=== PATIENT | male | born 1970 | race African-American/Black ===

== ENCOUNTER 2018-11-16 12:17 | Inpatient (IN) | payer BC ==
[2018-11-16 14:09] VITALS: BMI 23.7
--- NOTE | 2018-11-16 16:22 | HP ---
COWS - Scale Resting Pulse: 0= [place] 80 or Below Sweatin= No chills or Flushing Restless Observation: 0= Sits Still Pupil Size: 0= Normal to Room Light Bone or Joint Aches: 1= Mild Discomfort Runny Nose/ Eye Tearin= None GI Upset > 30mins: 0= None Tremor Observation: 0= None Yawning Observation: 1= 1-2x During Session Anxiety or Irritability: 2=Irritable/Anxious Goose Flesh Skin: 3=Piloerection COWS Score: 7 CIWA Score - Admission Criteria OASAS Guidelines: Admission for Medically Managed Detox: Requires at least one of the followin. CIWA greater than 12 2. Seizures within the past 24 hours 3. Delirium tremens within the past 24 hours 4. Hallucinations within the past 24 hours 5. Acute intervention needed for co occurring medical disorder 6. Acute intervention needed for co occurring psychiatric disorder 7. Severe withdrawal that cannot be handled at a lower level of care (continued vomiting, continued diarrhea, abnormal vital signs) requiring intravenous medication and/or fluids 8. Admission ROS [facility] - [facility] Chief Complaint: 48 y/o M with HTN who comes in to detox from heroin, marijuana. Allergies/Adverse Reactions: Allergies Allergy/AdvReac Type Severity Reaction Status Date / Time No Known Allergies Allergy Verified 11/16/18 13:55 History of Present Illness: 48 y/o M with PMH HTN who presents to detox from heroin. Per pt, his last use of heroin was today. Used 3 bags via inhalation, uses this amount every day. Has never IVDA. Was in a methadone program at [facility] [id number]; he was on a dose of 100 mg qd. States that he d/c it since he went to a program subsequently. Had also tried suboxone previously and liked it. States it was a good experience , however he "messed up an relapsed." Had OD 1x previously. Longest sobriety 2 yrs [id number] - states that he was going to NA meetings. Also uses marijuana daily - 1 bag, smoking every day. Uses this amount daily. Also xanax 3 weeks ago ; 1 stick. 2010 - [facility] 2016: [facility] - 6 months rehab 2016- [facility] detox PMH: as above PsxH: R lung cyst - lobectomy meds: hydrochlorothiazide allergies: NKDA FH: dad - HTN SH: lives in an apt with a family member. Works as a [employer]. 1 ppd x since age 15. denies alcohol use. or other drug use. Exam Limitations: No Limitations - Ebola screening Have you traveled outside of the country in the last 21 days: No Have you had contact with anyone from an Ebola affected area: No Have you been sick,other than usual withdrawal symptoms: No Do you have a fever: No - Review of Systems Constitutional: No Symptoms Reported EENT: reports: No Symptoms Reported Respiratory: reports: No Symptoms reported Cardiac: reports: No Symptoms Reported GI: reports: No Symptoms Reported : reports: No Symptoms Reported Musculoskeletal: reports: No Symptoms Reported Integumentary: reports: No Symptoms Reported Neuro: reports: Headache Endocrine: reports: No Symptoms Reported Hematology: reports: No Symptoms Reported Psychiatric: reports: No Sypmtoms Reported, Orientated x3 Patient History - Patient Medical History Hx Anemia: No Hx Asthma: No Hx Chronic Obstructive Pulmonary Disease (COPD): No Hx Cancer: No Hx Cardiac Disorders: No Hx Congestive Heart Failure: No Hx Hypertension: Yes Hx Hypercholesterolemia: No Hx Pacemaker: No HX Cerebrovascular Accident: No Hx Seizures: No Hx Dementia: No Hx Diabetes: No Hx Gastrointestinal Disorders: No Hx Liver Disease: No Hx Genitourinary Disorders: No Hx Sexually Transmitted Disorders: No Hx Renal Disease (ESRD): No Hx Thyroid Disease: No Hx Human Immunodeficiency Virus (HIV): No Hx Hepatitis C: No Hx Depression: No Hx Suicide Attempt: No Hx Bipolar Disorder: No Hx Schizophrenia: No - Patient Surgical History Past Surgical History: Yes Other Surgical History: R lobectomy - PPD History Documented Results: Negative w/o proof PPD to be Administered?: Yes - Reproductive History Patient is a Female of Child Bearing Age (11 -55 yrs old): No - Smoking Cessation Smoking history: Current every day smoker Have you smoked in the past 12 months: Yes Aproximately how many cigarettes per day: 20 Hx Chewing Tobacco Use: No Initiated information on smoking cessation: Yes 'Breaking Loose' booklet given: 11/16/18 - Substances abused Heroin Substance route: Inhalation Frequency: Daily Amount used: 4 bags Age of first use: 20 Date of last use: 11/16/18 Marijuana/Hashish Substance route: Smoking Frequency: Daily Amount used: 2 blunts Age of first use: 12 Date of last use: 11/16/18 Alprazolam (Xanax) Other (specify): xanax Substance route: Oral Frequency: 1-2 times per week Amount used: 1 stick Age of first use: 48 Date of last use: 11/02/18 Family Disease History - Family Disease History Family Disease History: Heart Disease: Father (HTN) Admission Physical Exam [facility] - Vital Signs Vital Signs: Vital Signs - 24 hr 11/16/18 13:53 Temperature 98.0 F Pulse Rate 59 L Respiratory 16 Rate Blood Pressure 133/81 - Physical General Appearance: Yes: Within Normal Limits HEENTM: Yes: Hearing grossly Normal Respiratory: Yes: Wheezing Neck: Yes: Supple Breast: Yes: Breast Exam Deferred Cardiology: Yes: S1, S2, Tachycardia Abdominal: Yes: Soft Genitourinary: Yes: Within Normal Limits Back: Yes: Within Normal Limits Extremities: Yes: Non-Tender 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 NML intact Integumentary: Yes: Dry, Warm - Diagnostic (1) Opiate withdrawal Current Visit: Yes Status: Acute (2) Hypertension Current Visit: Yes Status: Chronic (3) Marijuana dependence Current Visit: Yes Status: Chronic (4) Nicotine dependence Current Visit: Yes Status: Chronic Qualifiers: Nicotine product type: cigarettes Cleared for Admission [facility] - Detox or Rehab [facility] Level of Care: Medically Managed Detox Regimen/Protocol: Methadone Breathalyzer - Breathalyzer Breathalyzer: 0 Urine Drug Screen - Test Device Lot number: [id number] Expiration date: 08/30/20 - Control Is test valid?: Yes - Results Drug screen NEGATIVE: No Urine drug screen results: THC-Marijuana, FEN-Fentanyl, MOP-Opiates, BZO- Benzodiazepines Inpatient Rehab Admission - Rehab Decision to Admit Inpatient rehab admission?: No
[2018-11-16] MEDS ORDERED: cloNIDine HCL 0.1 MG TABLET PO PRN (16:55)
[2018-11-16] MEDS ORDERED: BISMUTH SUBSALICYLATE 524 MG/30 ML UD PO PRN (17:04)
[2018-11-16] MEDS ORDERED: hydrOXYzine HCL 25 MG TABLET (FP) PO PRN (17:04)
[2018-11-16] MEDS ORDERED: ACETAMINOPHEN 325 MG TABLET (FP) PO PRN (17:04)
[2018-11-16] MEDS ORDERED: IBUPROFEN 400 MG TABLET (FP) PO PRN (17:04)
[2018-11-16] MEDS ORDERED: MAGNESIUM HYDROX 2400MG/30ML ORAL SUSPENSION 30 ML CUP PO PRN (17:04)
[2018-11-16] MEDS ORDERED: MAG HYDROX/AL HYDROX/SIMETH 30 ML UNIT-DOSE CUP PO PRN (17:04)
[2018-11-16] MEDS ORDERED: MENTHOL/PHENOL 1 EACH UD MM PRN (17:04)
[2018-11-16] MEDS ORDERED: METHADONE HCL 10 MG TABLET (FOR DETOX USE ONLY) PO ONE (18:00)
[2018-11-16] MEDS: NICOTINE 7 MG/24 HOURS TOPICAL PATCH TD SCH (18:38)
[2018-11-16 22:01] LABS: URINE APPEARANCE CLEAR; URINE BILIRUBIN NEGATIVE (NEGATIVE); URINE COLOR YELLOW; URINE GLUCOSE (UA) NEGATIVE (NEGATIVE); URINE KETONE NEGATIVE (NEGATIVE); URINE LEUK ESTERASE NEGATIVE (NEGATIVE); URINE NITRITE NEGATIVE (NEGATIVE); URINE PROTEIN NEGATIVE (NEGATIVE)
[2018-11-16] MEDS: THIAMINE HCL 100 MG TABLET (FP) PO SCH (22:26)
[2018-11-16] MEDS: MELATONIN 5 MG TABLETS PO PRN (22:27)
[2018-11-17] MEDS ORDERED: METHADONE HCL 10 MG TABLET (FOR DETOX USE ONLY) ONE (09:29)
[2018-11-17] MEDS ORDERED: METHADONE HCL 5 MG TABLET (FOR DETOX USE ONLY) ONE (09:29)
[2018-11-17] MEDS ORDERED: METHADONE (DETOX) 20 MG, METHADONE (DETOX) 5 MG PO ONE (10:00)
[2018-11-17] MEDS: NICOTINE 7 MG/24 HOURS TOPICAL PATCH TD SCH (10:17)
[2018-11-17] MEDS: PRENATAL VITAMINS W/ FOLIC ACID TABLET (FP) PO SCH (10:17)
[2018-11-17] MEDS: TRIAMTERENE AND HCTZ - 37.5 MG/25 MG CAPSULE PO SCH (10:17)
[2018-11-17 10:22] LABS: HEMATOCRIT 42.5 % (35.4-49); HEMOGLOBIN 14.1 GM/dL (11.7-16.9); MCH 28.6 pg (25.7-33.7); MCHC 33.1 g/dl (32.0-35.9); MEAN CELL VOLUME 86.5 fl (80-96); MEAN PLT VOLUME 10.2 fl (7.5-11.1); RBC 4.91 M/mm3 (4.00-5.60); RDW 14.4 % (11.9-15.9); WHITE BLOOD COUNT 6.2 K/mm3 (4.0-10.0)
[2018-11-17 10:32] LABS: ALBUMIN 3.5 g/dl (3.4-5.0); BILIRUBIN,TOTAL 0.3 mg/dL (0.2-1); BLOOD UREA NITROGEN 17.6 mg/dL (7-18); CREATININE 1.1 mg/dL (0.55-1.3); POTASSIUM 4.3 mmol/L (3.5-5.1); TOT PROT 7.1 g/dl (6.4-8.2)
[2018-11-17 10:37] LABS: PLATELET COUNT 220 K/MM3 (134-434)
--- NOTE | 2018-11-17 13:44 | PN ---
BHS COWS - Scale Resting Pulse: 0= [place] 80 or Below Sweatin= Chills/Flushing Restless Observation: 1= Difficult to Sit Still Pupil Size: 0= Normal to Room Light Bone or Joint Aches: 1= Mild Discomfort Runny Nose/ Eye Tearin= Runny Nose/Eyes GI Upset > 30mins: 0= None Tremor Observation of Outstretched Hands: 1= Tremor [place], Not Seen Yawning Observation: 2= >3x During Session Anxiety or Irritability: 1=Feels Anxious/Irritable Goose Flesh Skin: 0=Smooth Skin COWS Score: 9 BHS Progress Note (SOAP) Subjective: c/o of interrupted sleep, chills, body aches Objective: 11/17/18 13:42 Vital Signs Temperature 98.1 F 11/17/18 13:31 Pulse Rate 48 L 11/17/18 13:31 Respiratory Rate 18 11/17/18 13:31 Blood Pressure 130/76 11/17/18 13:31 O2 Sat by Pulse Oximetry (%) Laboratory Last Values WBC 6.2 K/mm3 (4.0-10.0) 11/17/18 07:00 RBC 4.91 M/mm3 (4.00-5.60) 11/17/18 07:00 Hgb 14.1 GM/dL (11.7-16.9) 11/17/18 07:00 Hct 42.5 % (35.4-49) 11/17/18 07:00 MCV 86.5 fl (80-96) 11/17/18 07:00 MCH 28.6 pg (25.7-33.7) 11/17/18 07:00 MCHC 33.1 g/dl (32.0-35.9) 11/17/18 07:00 RDW 14.4 % (11.9-15.9) 11/17/18 07:00 Plt Count 220 K/MM3 (134-434) 11/17/18 07:00 MPV 10.2 fl (7.5-11.1) 11/17/18 07:00 Sodium 139 mmol/L (136-145) 11/17/18 07:00 Potassium 4.3 mmol/L (3.5-5.1) 11/17/18 07:00 Chloride 102 mmol/L (98-107) 11/17/18 07:00 Carbon Dioxide 34 mmol/L (21-32) H 11/17/18 07:00 Anion Gap 3 MMOL/L (8-16) L 11/17/18 07:00 BUN 17.6 mg/dL (7-18) 11/17/18 07:00 Creatinine 1.1 mg/dL (0.55-1.3) 11/17/18 07:00 Est GFR (CKD-EPI)AfAm 90.88 11/17/18 07:00 Est GFR (CKD-EPI)NonAf 78.41 11/17/18 07:00 Random Glucose 87 mg/dL (74-106) 11/17/18 07:00 Calcium 9.0 mg/dL (8.5-10.1) 11/17/18 07:00 Total Bilirubin 0.3 mg/dL (0.2-1) 11/17/18 07:00 AST 13 U/L (15-37) L 11/17/18 07:00 ALT 24 U/L (13-61) 11/17/18 07:00 Alkaline Phosphatase 87 U/L (45-117) 11/17/18 07:00 Total Protein 7.1 g/dl (6.4-8.2) 11/17/18 07:00 Albumin 3.5 g/dl (3.4-5.0) 11/17/18 07:00 Urine Color Yellow 11/16/18 19:11 Urine Appearance Clear 11/16/18 19:11 Urine pH 6.0 (5.0-8.0) 11/16/18 19:11 Ur Specific [place] 1.016 (1.010-1.035) 11/16/18 19:11 Urine Protein Negative (NEGATIVE) 11/16/18 19:11 Urine Glucose (UA) Negative (NEGATIVE) 11/16/18 19:11 Urine Ketones Negative (NEGATIVE) 11/16/18 19:11 Urine Blood Negative (NEGATIVE) 11/16/18 19:11 Urine Nitrite Negative (NEGATIVE) 11/16/18 19:11 Urine Bilirubin Negative (NEGATIVE) 11/16/18 19:11 Urine Urobilinogen 1.0 mg/dL (0.2-1.0) 11/16/18 19:11 Ur Leukocyte Esterase Negative (NEGATIVE) 11/16/18 19:11 RPR Titer Nonreactive (NONREACTIVE) 11/17/18 07:00 Assessment: 11/17/18 13:45 Aox3 no acute distress, ambulating in the unit, no gait abnormality withdrawal sx Plan: MAT discussed, reports hx of tx with OTP until 2011 and temp use of suboxone, plans to resume suboxone tx post d/c increase PO fluids continue detox continue to monitor
[2018-11-17] MEDS: THIAMINE HCL 100 MG TABLET (FP) PO SCH (22:18)
[2018-11-17] MEDS: MELATONIN 5 MG TABLETS PO PRN (22:19)
[2018-11-18] MEDS ORDERED: METHADONE HCL 10 MG TABLET (FOR DETOX USE ONLY) PO ONE (10:00)
[2018-11-18] MEDS: PRENATAL VITAMINS W/ FOLIC ACID TABLET (FP) PO SCH (10:34)
[2018-11-18] MEDS: NICOTINE 7 MG/24 HOURS TOPICAL PATCH TD SCH (10:34)
[2018-11-18] MEDS: TRIAMTERENE AND HCTZ - 37.5 MG/25 MG CAPSULE PO SCH (10:34)
--- NOTE | 2018-11-18 13:07 | PN ---
BHS COWS - Scale Resting Pulse: 0= [place] 80 or Below Sweatin= Chills/Flushing Restless Observation: 0= Sits Still Pupil Size: 0= Normal to Room Light Bone or Joint Aches: 1= Mild Discomfort Runny Nose/ Eye Tearin= Nasal Congestion GI Upset > 30mins: 1= Stomach Cramp Tremor Observation of Outstretched Hands: 1= Tremor [place], Not Seen Yawning Observation: 0= None Anxiety or Irritability: 1=Feels Anxious/Irritable Goose Flesh Skin: 0=Smooth Skin COWS Score: 6 BHS Progress Note (SOAP) Subjective: sweats anxiety Objective: 11/18/18 13:07 Vital Signs Temperature 97.9 F 11/18/18 09:15 Pulse Rate 52 L 11/18/18 09:15 Respiratory Rate 18 11/18/18 09:15 Blood Pressure 138/62 11/18/18 09:15 O2 Sat by Pulse Oximetry (%) Laboratory Tests 11/16/18 11/17/18 11/17/18 19:11 07:00 07:00 WBC 6.2 RBC 4.91 Hgb 14.1 Hct 42.5 MCV 86.5 MCH 28.6 MCHC 33.1 RDW 14.4 Plt Count 220 MPV 10.2 Sodium 139 Potassium 4.3 Chloride 102 Carbon Dioxide 34 H Anion Gap 3 L BUN 17.6 Creatinine 1.1 Est GFR (CKD-EPI)AfAm 90.88 Est GFR (CKD-EPI)NonAf 78.41 Random Glucose 87 Calcium 9.0 Total Bilirubin 0.3 AST 13 L ALT 24 Alkaline Phosphatase 87 Total Protein 7.1 Albumin 3.5 Urine Color Yellow Urine Appearance Clear Urine pH 6.0 Ur Specific [place] 1.016 Urine Protein Negative Urine Glucose (UA) Negative Urine Ketones Negative Urine Blood Negative Urine Nitrite Negative Urine Bilirubin Negative Urine Urobilinogen 1.0 Ur Leukocyte Esterase Negative RPR Titer 11/17/18 07:00 WBC RBC Hgb Hct MCV MCH MCHC RDW Plt Count MPV Sodium Potassium Chloride Carbon Dioxide Anion Gap BUN Creatinine Est GFR (CKD-EPI)AfAm Est GFR (CKD-EPI)NonAf Random Glucose Calcium Total Bilirubin AST ALT Alkaline Phosphatase Total Protein Albumin Urine Color Urine Appearance Urine pH Ur Specific [place] Urine Protein Urine Glucose (UA) Urine Ketones Urine Blood Urine Nitrite Urine Bilirubin Urine Urobilinogen Ur Leukocyte Esterase RPR Titer Nonreactive aaox3 ambulating no acute distress Assessment: 11/18/18 13:07 withdrawal sx Plan: continue detox increase fluids
[2018-11-18] MEDS: MELATONIN 5 MG TABLETS PO PRN (22:05)
[2018-11-18] MEDS: THIAMINE HCL 100 MG TABLET (FP) PO SCH (22:05)
[2018-11-19] MEDS ORDERED: METHADONE HCL 5 MG TABLET (FOR DETOX USE ONLY) ONE ×2 (09:22→09:26)
[2018-11-19] MEDS ORDERED: METHADONE HCL 10 MG TABLET (FOR DETOX USE ONLY) ONE (09:26)
[2018-11-19] MEDS ORDERED: METHADONE (DETOX) 10 MG, METHADONE (DETOX) 5 MG PO ONE (10:00)
[2018-11-19] MEDS: PRENATAL VITAMINS W/ FOLIC ACID TABLET (FP) PO SCH (10:39)
[2018-11-19] MEDS: TRIAMTERENE AND HCTZ - 37.5 MG/25 MG CAPSULE PO SCH (10:39)
[2018-11-19] MEDS: NICOTINE 7 MG/24 HOURS TOPICAL PATCH TD SCH (10:39)
--- NOTE | 2018-11-19 11:18 | PN ---
BHS COWS - Scale Resting Pulse: 0= [place] 80 or Below Sweatin= Chills/Flushing Restless Observation: 1= Difficult to Sit Still Pupil Size: 0= Normal to Room Light Bone or Joint Aches: 0= None Runny Nose/ Eye Tearin= None GI Upset > 30mins: 0= None Tremor Observation of Outstretched Hands: 0= None Yawning Observation: 1= 1-2x During Session Anxiety or Irritability: 2=Irritable/Anxious Goose Flesh Skin: 0=Smooth Skin COWS Score: 5 BHS Progress Note (SOAP) Subjective: c/o sweats, anxiety/irritability. Objective: 11/19/18 11:18 Vital Signs 11/19/18 11/19/18 11/19/18 03:30 08:13 09:57 Temperature 97.9 F 97.5 F L Pulse Rate 54 L 62 Respiratory 18 18 18 Rate Blood Pressure 100/60 99/64 Assessment: 11/19/18 11:18 AOX3, in no acute distress. Full ROM, ambulating in the unit. mild withdrawal symptoms. Plan: continue detox.
[2018-11-19] MEDS: THIAMINE HCL 100 MG TABLET (FP) PO SCH (22:14)
[2018-11-19] MEDS: MELATONIN 5 MG TABLETS PO PRN (22:15)
[2018-11-20] MEDS ORDERED: METHADONE HCL 10 MG TABLET (FOR DETOX USE ONLY) PO ONE (10:00)
[2018-11-20] MEDS: PRENATAL VITAMINS W/ FOLIC ACID TABLET (FP) PO SCH (10:39)
[2018-11-20] MEDS: TRIAMTERENE AND HCTZ - 37.5 MG/25 MG CAPSULE PO SCH (10:40)
[2018-11-20] MEDS: NICOTINE 7 MG/24 HOURS TOPICAL PATCH TD SCH (10:40)
--- NOTE | 2018-11-20 12:52 | PN ---
BHS COWS - Scale Resting Pulse: 0= [place] 80 or Below Sweatin= No chills or Flushing Restless Observation: 1= Difficult to Sit Still Pupil Size: 0= Normal to Room Light Bone or Joint Aches: 1= Mild Discomfort Runny Nose/ Eye Tearin= None GI Upset > 30mins: 0= None Tremor Observation of Outstretched Hands: 0= None Yawning Observation: 0= None Anxiety or Irritability: 2=Irritable/Anxious Goose Flesh Skin: 0=Smooth Skin COWS Score: 4 BHS Progress Note (SOAP) Subjective: Patient c/o interrupted sleep, mild body aches and irritability. Objective: 11/20/18 12:50 PE: alert and oriented x 3 skin warm and dry +perrla eoms intact bl ext full rom, amb ad wilmer irritable 11/20/18 12:51 Laboratory Tests 11/16/18 11/17/18 11/17/18 19:11 07:00 07:00 WBC 6.2 RBC 4.91 Hgb 14.1 Hct 42.5 MCV 86.5 MCH 28.6 MCHC 33.1 RDW 14.4 Plt Count 220 MPV 10.2 Sodium 139 Potassium 4.3 Chloride 102 Carbon Dioxide 34 H Anion Gap 3 L BUN 17.6 Creatinine 1.1 Est GFR (CKD-EPI)AfAm 90.88 Est GFR (CKD-EPI)NonAf 78.41 Random Glucose 87 Calcium 9.0 Total Bilirubin 0.3 AST 13 L ALT 24 Alkaline Phosphatase 87 Total Protein 7.1 Albumin 3.5 Urine Color Yellow Urine Appearance Clear Urine pH 6.0 Ur Specific [place] 1.016 Urine Protein Negative Urine Glucose (UA) Negative Urine Ketones Negative Urine Blood Negative Urine Nitrite Negative Urine Bilirubin Negative Urine Urobilinogen 1.0 Ur Leukocyte Esterase Negative RPR Titer 11/17/18 07:00 WBC RBC Hgb Hct MCV MCH MCHC RDW Plt Count MPV Sodium Potassium Chloride Carbon Dioxide Anion Gap BUN Creatinine Est GFR (CKD-EPI)AfAm Est GFR (CKD-EPI)NonAf Random Glucose Calcium Total Bilirubin AST ALT Alkaline Phosphatase Total Protein Albumin Urine Color Urine Appearance Urine pH Ur Specific [place] Urine Protein Urine Glucose (UA) Urine Ketones Urine Blood Urine Nitrite Urine Bilirubin Urine Urobilinogen Ur Leukocyte Esterase RPR Titer Nonreactive Vital Signs Period Temp Pulse Resp BP Sys/[place] Pulse Ox Last 24 Hr 98.2 F-99.3 F 50-75 16-18 100-136/52-72 Assessment: 11/20/18 12:51 withdrawal sx Plan: continue detox trazodone 50mg hs for insomnia d/c in am
[2018-11-20] MEDS ORDERED: traZODone HCL 50 MG TABLET (FP) PO SCH (22:00)
[2018-11-20] MEDS: THIAMINE HCL 100 MG TABLET (FP) PO SCH (22:07)
[2018-11-21] MEDS ORDERED: METHADONE HCL 5 MG TABLET (FOR DETOX USE ONLY) PO ONE (06:00)
--- NOTE | 2018-11-21 09:14 | DS ---
[facility] Detox Discharge Summary Admission Date: 11/16/18 Discharge Date: 11/21/18 - History Present History: Cannabis Dependence, Opioid Dependence - Physical Exam Results Vital Signs: Vital Signs Temperature 97.9 F 11/21/18 06:00 Pulse Rate 86 11/21/18 06:00 Respiratory Rate 18 11/21/18 06:00 Blood Pressure 106/71 11/21/18 06:00 O2 Sat by Pulse Oximetry (%) Pertinent Admission Physical Exam Findings: pt admitted in withdrawal Laboratory Tests 11/16/18 11/17/18 11/17/18 19:11 07:00 07:00 WBC 6.2 RBC 4.91 Hgb 14.1 Hct 42.5 MCV 86.5 MCH 28.6 MCHC 33.1 RDW 14.4 Plt Count 220 MPV 10.2 Sodium 139 Potassium 4.3 Chloride 102 Carbon Dioxide 34 H Anion Gap 3 L BUN 17.6 Creatinine 1.1 Est GFR (CKD-EPI)AfAm 90.88 Est GFR (CKD-EPI)NonAf 78.41 Random Glucose 87 Calcium 9.0 Total Bilirubin 0.3 AST 13 L ALT 24 Alkaline Phosphatase 87 Total Protein 7.1 Albumin 3.5 Urine Color Yellow Urine Appearance Clear Urine pH 6.0 Ur Specific [place] 1.016 Urine Protein Negative Urine Glucose (UA) Negative Urine Ketones Negative Urine Blood Negative Urine Nitrite Negative Urine Bilirubin Negative Urine Urobilinogen 1.0 Ur Leukocyte Esterase Negative RPR Titer 11/17/18 07:00 WBC RBC Hgb Hct MCV MCH MCHC RDW Plt Count MPV Sodium Potassium Chloride Carbon Dioxide Anion Gap BUN Creatinine Est GFR (CKD-EPI)AfAm Est GFR (CKD-EPI)NonAf Random Glucose Calcium Total Bilirubin AST ALT Alkaline Phosphatase Total Protein Albumin Urine Color Urine Appearance Urine pH Ur Specific [place] Urine Protein Urine Glucose (UA) Urine Ketones Urine Blood Urine Nitrite Urine Bilirubin Urine Urobilinogen Ur Leukocyte Esterase RPR Titer Nonreactive aaox3 ambulating no acute distress - Treatment Hospital Course: Detox Protocol Followed, Detoxed Safely, Responded well, Discharged Condition Good, Rehab Referral Accepted Patient has Accepted a Rehab Referral to: pt referred to [facility] rehab however pt declined - Medication Discharge Medications: Ambulatory Orders Triamterene/Hydrochlorothiazid [Triamterene-Hctz 37.5-25 mg Cp] 1 each PO DAILY #15 capsule 11/20/18 - Diagnosis (1) Opiate withdrawal Current Visit: Yes Status: Chronic (2) Hypertension Current Visit: Yes Status: Chronic Qualifiers: Hypertension type: essential hypertension Qualified Code(s): I10 - Essential (primary) hypertension (3) Marijuana dependence Current Visit: Yes Status: Chronic (4) Nicotine dependence Current Visit: Yes Status: Chronic Qualifiers: Nicotine product type: cigarettes Substance use status: uncomplicated Qualified Code(s): F17.210 - Nicotine dependence, cigarettes, uncomplicated - AMA Did Patient Leave Against Medical Advice: No (pt declined rehab; referral provided)
[2018-11-21 09:19] VITALS: BP 109/66; PULSE 83; TEMP 98.2
== END 2018-11-21 09:15 | disposition home or self-care (01) | DRG 897 ==
LOC: YASAS 12:17 → Y6N 17:27
PROVIDERS: ADMIT Surgery; ATTEND Surgery
PROC: HZ2ZZZZ Detoxification Services for Substance Abuse Treatment (ICD-10-PCS; principal; 2018-11-16)
DX: F10.230 Alcohol dependence with withdrawal, uncomplicated (principal); F12.20 Cannabis dependence, uncomplicated; F17.210 Nicotine dependence, cigarettes, uncomplicated; I10 Essential (primary) hypertension; R00.0 Tachycardia, unspecified
CPT/HCPCS: 36415; 80053; 81003; 85027; 86593; J0735

== ENCOUNTER 2022-04-02 08:56 | Emergency (ER) | payer OTHER ==
[2022-04-02 09:40] VITALS: BP 135/80; PULSE 60; RESP 18; TEMP 98.2; BMI 26.7
== END 2022-04-02 15:41 | disposition home or self-care (01) ==
LOC: JER 08:56
DX: J06.9 Acute upper respiratory infection, unspecified (principal)
CPT/HCPCS: 0241U-QW; 99283-25

== ENCOUNTER 2022-10-03 15:14 | Emergency (ER) | payer OTHER ==
[2022-10-03 15:48] VITALS: BMI 28.0
[2022-10-03] MEDS ORDERED: NALOXONE HCL 0.4 MG/ML VIAL IVPUSH ONE ×3 (16:56→18:07)
[2022-10-03] MEDS ORDERED: NALOXONE HCL 0.4 MG/ML VIAL ONE (17:34)
[2022-10-03] MEDS ORDERED: NALOXONE HCL (KLOXXADO) 8 MG SPRAY NS ONE (17:37)
[2022-10-03 19:52] VITALS: BP 97/63; PULSE 58; RESP 17; TEMP 97.3
== END 2022-10-03 21:48 | disposition home or self-care (01) ==
LOC: JER 15:14
PROC: 3E033NZ Introduction of Analgesics, Hypnotics, Sedatives into Peripheral Vein, Percutaneous Approach (ICD-10-PCS; principal; 2022-10-03)
DX: T40.2X1A Poisoning by other opioids, accidental (unintentional), initial encounter (principal)
CPT/HCPCS: 82962; 99284-25